=== PATIENT | male | born 1995 | race African-American/Black ===

== ENCOUNTER 2016-12-24 20:05 | Emergency (ER) | payer OTHER ==
[~2016-12-24] VITALS: Ht 182.9 cm; Wt 73.0 kg
[2016-12-24] MEDS ORDERED: SODIUM CHLORIDE 0.9% 1,000 ML IV ONE (20:46)
[2016-12-24 21:06] LABS: BASOPHILS % 0.6 % (0.0-2.0); EOSINOPHILS % 2.2 % (0.0-5.0); HEMOGLOBIN. 14.1 g/dL (14.0-18.0); LYMPHOCYTES % 23.2 % (20.0-50.0); MEAN CORPUSCULAR HEMOGLOBIN 31.2 pg (28.0-32.0); MEAN CORPUSCULAR HGB CONC 33.6 g/dL (31.0-37.0); MEAN CORPUSCULAR VOLUME 92.9 fL (80.0-94.0); MEAN PLATELET VOLUME 6.6 fl (7.4-10.4); MONOCYTES % 7.5 % (2.0-8.0); NEUTROPHILS % 66.5 % (40.0-76.0); PLATELET 350 x1000/uL (130-400); RED BLOOD CELL COUNT 4.52 mill/uL (4.7-6.1); RED CELL DISTRIBUTION WIDTH 13.2 % (11.6-14.6); WHITE BLOOD COUNT 8.3 x1000/uL (4.5-11.0)
[2016-12-24 21:11] LABS: CHLORIDE 105 mEq/L (98-107); INDEX HEMOLYSI 1 (1-3); INDEX ICTERIC 1 (1-4); INDEX LIPEMIC 1 (1-3)
[2016-12-24 21:19] LABS: ACETAMINOPHEN < 2 ug/mL (10-30); ALANINE AMINOTRANSFERASE 23 IU/L (13-61); ALBUMIN 3.2 g/dL (3.4-5.0); ANION GAP 11; CALCIUM 8.6 mg/dL (8.5-10.1); CARBON DIOXIDE 28 mEq/L (21-32); ETHANOL BLOOD < 10 mg/dL; UREA NITROGEN BLOOD 11 mg/dL (7-21); eGFR > 60 mL/min (>60)
[2016-12-24 22:37] LABS: CLARITY URINE CLEAR (CLEAR); COLOR URINE YELLOW (YELLOW); GLUCOSE URINE NEGATIVE (NEGATIVE); KETONES URINE NEGATIVE (NEGATIVE); LEUKOCYTE ESTERASE URINE NEGATIVE (NEGATIVE); NITRITE URINE NEGATIVE (NEGATIVE); OCCULT BLOOD URINE NEGATIVE (NEGATIVE); PROTEIN URINE NEGATIVE (NEGATIVE); UROBILINOGEN URINE 0.2 E.U./dL (0.2-1.0)
[2016-12-24 22:55] LABS: *AMPHETAMINES SCREEN URINE NEGATIVE (NEGATIVE); *BARBITURATES SCREEN URINE NEGATIVE (NEGATIVE); *BENZODIAZEPINES SCREEN URINE PRESUMTIVE POSITIVE (NEGATIVE); *COCAINE SCREEN URINE PRESUMTIVE POSITIVE (NEGATIVE); CANNABINOID URINE SCREEN PRESUMTIVE POSITIVE (NEGATIVE); ECSTASY MDMA SCREEN URINE NEGATIVE (NEGATIVE); METHADONE URINE SCREEN NEGATIVE (NEGATIVE); OPIATES URINE SCREEN NEGATIVE (NEGATIVE); PHENCYCLIDINE URINE SCREEN PRESUMTIVE POSITIVE (NEGATIVE)
[2016-12-24] MEDS ORDERED: HALOPERIDOL LACTATE 5MG/ML VIAL IM ONE (23:30)
[2016-12-24] MEDS ORDERED: LORAZEPAM 2MG/ML CPJ IM ONE (23:30)
[2016-12-25 14:59] VITALS: BP 129/81
== END 2016-12-25 15:00 | disposition home or self-care (01) ==
LOC: ER 20:06
DX: F29 Unspecified psychosis not due to a substance or known physiological condition (principal); T40.5X1A Poisoning by cocaine, accidental (unintentional), initial encounter; T40.991A Poisoning by other psychodysleptics [hallucinogens], accidental (unintentional), initial encounter; Y92.89 Other specified places as the place of occurrence of the external cause
CPT/HCPCS: 36415; 70450; 80053; 80305; 80307; 80329; 81003; 85025; 93005; 96360; 96372; 99285; G0482; J1630; J2060; J7030; Z7610

== ENCOUNTER 2021-09-16 12:04 | Emergency (ER) | payer OTHER ==
[~2021-09-16] VITALS: Ht 185.4 cm; Wt 77.0 kg
[2021-09-16] MEDS ORDERED: LORAZEPAM 2MG/ML CPJ IV STA (12:36)
[2021-09-16] MEDS ORDERED: SODIUM CHLORIDE 0.9% 1,000 ML IV ONE (12:45)
[2021-09-16 13:03] LABS: BASOPHILS % 0.5 % (0.0-2.0); EOSINOPHILS % 0.2 % (0.0-5.0); HEMATOCRIT. 43.2 % (42.0-52.0); HEMOGLOBIN. 14.6 g/dL (14.0-18.0); LYMPHOCYTES % 16.6 % (20.0-50.0); MEAN CORPUSCULAR HEMOGLOBIN 30.5 pg (28.0-32.0); MEAN CORPUSCULAR VOLUME 90.5 fL (80.0-94.0); MEAN PLATELET VOLUME 7.4 fl (7.4-10.4); NEUTROPHILS % 74.7 % (40.0-76.0); PLATELET 423 x1000/uL (130-400); RED BLOOD CELL COUNT 4.78 mill/uL (4.7-6.1); RED CELL DISTRIBUTION WIDTH 13.3 % (11.6-14.6)
[2021-09-16 13:08] LABS: CHLORIDE 104 mEq/L (98-107)
[2021-09-16 13:10] LABS: CLARITY URINE CLOUDY (CLEAR); COLOR URINE DARK YELLOW (YELLOW); KETONES URINE 4+ (NEGATIVE); LEUKOCYTE ESTERASE URINE TRACE (NEGATIVE); NITRITE URINE NEGATIVE (NEGATIVE); OCCULT BLOOD URINE NEGATIVE (NEGATIVE); PROTEIN URINE 3+ (NEGATIVE)
[2021-09-16 13:14] LABS: ETHANOL BLOOD < 10 mg/dL
[2021-09-16 13:42] LABS: *AMPHETAMINES SCREEN URINE PRESUMTIVE POSITIVE (NEGATIVE); *BARBITURATES SCREEN URINE NEGATIVE (NEGATIVE); *BENZODIAZEPINES SCREEN URINE NEGATIVE (NEGATIVE); *COCAINE SCREEN URINE NEGATIVE (NEGATIVE); CANNABINOID URINE SCREEN PRESUMTIVE POSITIVE (NEGATIVE); METHADONE URINE SCREEN NEGATIVE (NEGATIVE)
[2021-09-16 13:43] LABS: OPIATES URINE SCREEN NEGATIVE (NEGATIVE); PHENCYCLIDINE URINE SCREEN PRESUMTIVE POSITIVE (NEGATIVE)
[2021-09-16] MEDS ORDERED: MIDAZOLAM HCL 2 MG/2 ML VIAL IV ONE (17:15)
[2021-09-16] MEDS ORDERED: HALOPERIDOL LACTATE 5MG/ML VIAL IM ONE (17:15)
[2021-09-16 19:53] LABS: HEPATITIS B SURFACE ANTIGEN NEGATIVE
[2021-09-16 23:05] VITALS: BP 123/68
== END 2021-09-16 23:08 | disposition home or self-care (01) ==
LOC: ER 12:04
DX: T40.991A Poisoning by other psychodysleptics [hallucinogens], accidental (unintentional), initial encounter (principal); T43.621A Poisoning by amphetamines, accidental (unintentional), initial encounter; T40.711A Poisoning by cannabis, accidental (unintentional), initial encounter; R41.82 Altered mental status, unspecified; F19.129 Other psychoactive substance abuse with intoxication, unspecified; F16.129 Hallucinogen abuse with intoxication, unspecified; F12.129 Cannabis abuse with intoxication, unspecified; Y92.89 Other specified places as the place of occurrence of the external cause; Z78.1 Physical restraint status
CPT/HCPCS: 36415; 80053; 80305; 80307; 80320; 80329; 81003; 85025; 93005; 96361; 96372; 96374; 96375; 99285; C9803; J1630; J2060; J2250; J7030; U0003; U0005; G0480